=== PATIENT | female | born 1945 | race Caucasian/White ===

== ENCOUNTER 2019-03-13 21:00 | Inpatient (IN) | payer MEDICARE, OTHER ==
[~2019-03-13] VITALS: Ht 160 cm; Wt 109.0 kg
[2019-03-13] MEDS ORDERED: CLON0.25 PO (21:41)
[2019-03-13] MEDS ORDERED: DULO60CA6 PO (21:41)
[2019-03-13] MEDS ORDERED: EZET10TA18 PO (21:41)
[2019-03-13] MEDS ORDERED: ISOS30TA4 PO (21:41)
[2019-03-13] MEDS ORDERED: GLIP2.5T4 PO (21:41)
[2019-03-13] MEDS ORDERED: MIRT45TA58 PO (21:41)
[2019-03-13] MEDS ORDERED: LOSA50TA86 PO (21:41)
[2019-03-13] MEDS ORDERED: GABA-587 PO (21:41)
[2019-03-13] MEDS ORDERED: CLOP75TA57 PO (21:41)
[2019-03-13] MEDS ORDERED: DOCU-109 PO (21:41)
[2019-03-13] MEDS ORDERED: ATORVASTATIN CA80 MG PO (21:41)
[2019-03-13] MEDS ORDERED: FENO48TA2 PO (21:41)
[2019-03-13] MEDS ORDERED: FURO20TA3 PO (21:41)
[2019-03-13] MEDS ORDERED: BUSP10TA PO (21:41)
[2019-03-13] MEDS ORDERED: CARV6.25 PO (21:41)
[2019-03-13] MEDS ORDERED: LEVO112T4 PO (21:41)
[2019-03-13] MEDS ORDERED: ASPI-612 PO (21:41)
[2019-03-13] MEDS ORDERED: TRAZ-120 PO (22:02)
[2019-03-13] MEDS ORDERED: PANT40TA3 PO (22:02)
[2019-03-13] MEDS ORDERED: ONDA4TAB7 PO (22:02)
[2019-03-13 22:15] VITALS: BP 162/74
--- NOTE | 2019-03-13 22:15 | PDOC ---
Exam Note: Roni Note: Please also refer to the separate dictated note~for this date of service dictated separately. Discussed the patient with Nursing staff reviewed the chart.~Reviewed interim history and current functioning. Reviewed vital signs,~Labs/ Radiology~and current medications noted below. Continue current treatment with the changes noted in the dictated addendum note Current Medications: I have reviewed the current psychotropics carefully including drug interactions. Risk benefit ratio favors no change other than as noted in my dictated progress note. ADRIANA BENSON MD Mar 13, 2019 22:15
[2019-03-13] MEDS: clonazePAM 0.5 MG TABLET PO SCH (23:07)
[2019-03-13] MEDS: MIRTAZAPINE 15 MG TABLET PO SCH (23:08)
[2019-03-13] MEDS: ONDANSETRON ODT 4 MG TAB.RAPDIS PO PRN (23:08)
[2019-03-13] MEDS: traZODone 50 MG TABLET. PO SCH (23:08)
[2019-03-13] MEDS ORDERED: MAG HYDROX/AL HYDROX/SIMETH 30 ML ORAL.SUSP PO PRN (23:45)
[2019-03-13] MEDS ORDERED: METHYL SALICYLATE/MENTHOL TOPICAL OINTMENT 29GM TUBE. TP PRN (23:45)
[2019-03-13] MEDS ORDERED: ACETAMINOPHEN 325 MG TABLET PO PRN (23:45)
[2019-03-13] MEDS ORDERED: MAGNESIUM HYDROXIDE 2,400 MG/30 ML ORAL.SUSP. PO PRN (23:45)
[2019-03-14 06:08] VITALS: BP 146/77
[2019-03-14 06:44] LABS: BASO % 1 % (0-3); EOS # 0.2 x10^3/uL (0.0-0.7); EOS % 4 % (0-3); HEMATOCRIT 40.6 % (36.0-47.0); HEMOGLOBIN 13.4 g/dL (12.0-15.5); LYMPH # 0.6 x10^3/uL (1.0-4.8); LYMPH % 14 % (24-48); MEAN CORPUSCULAR HEMOGLOBIN 29 pg (25-35); MEAN CORPUSCULAR HGB CONC 33 g/dL (31-37); MEAN CORPUSCULAR VOLUME 89 fL (79-100); MONO # 0.4 x10^3/uL (0.0-1.1); MONO % 9 % (0-9); NEUT % 72 % (31-73); PLATELET COUNT 176 x10^3/uL (140-400); RED BLOOD COUNT 4.57 x10^6/uL (3.50-5.40); WHITE BLOOD COUNT 4.2 x10^3/uL (4.0-11.0)
[2019-03-14 06:53] LABS: ALBUMIN 3.1 g/dL (3.4-5.0); CREATININE 1.2 mg/dL (0.6-1.0); GFR 43.8; MAGNESIUM 1.8 mg/dL (1.8-2.4); POTASSIUM 3.4 mmol/L (3.5-5.1); TOTAL BILIRUBIN 0.4 mg/dL (0.2-1.0); TOTAL PROTEIN 6.2 g/dL (6.4-8.2)
[2019-03-14] MEDS: ONDANSETRON ODT 4 MG TAB.RAPDIS PO PRN (08:04)
[2019-03-14] MEDS: LEVOTHYROXINE 112 MCG TABLET PO SCH (08:12)
[2019-03-14] MEDS: busPIRone 10 MG TABLET. PO SCH ×3 (08:12→19:51)
[2019-03-14] MEDS: CLOPIDOGREL BISULFATE 75 MG TABLET PO SCH (08:12)
[2019-03-14] MEDS: ISOSORBIDE MONONITRATE ER 30 MG TAB.ER.24H PO SCH (08:13)
[2019-03-14] MEDS: clonazePAM 0.5 MG TABLET PO SCH ×3 (08:13→19:51)
[2019-03-14] MEDS: FENOFIBRATE NANOCRYSTALLIZED 48 MG TABLET PO SCH (08:14)
[2019-03-14] MEDS: LOSARTAN 50 MG TABLET. PO SCH (08:14)
[2019-03-14] MEDS: DOCUSATE SODIUM 100 MG CAPSULE PO SCH (08:15)
[2019-03-14] MEDS: PANTOPRAZOLE 40 MG TABLET. PO SCH (08:15)
[2019-03-14] MEDS: CARVEDILOL 6.25 MG TABLET PO SCH ×2 (08:16→17:43)
[2019-03-14] MEDS: DULoxetine HCL 60 MG CAPSULE.DR PO SCH (08:16)
[2019-03-14] MEDS: GABAPENTIN 400 MG CAPSULE. PO SCH ×2 (08:16→20:20)
[2019-03-14] MEDS: FUROSEMIDE 20 MG TABLET PO SCH (08:16)
[2019-03-14] MEDS: glipiZIDE ER 2.5 MG TAB.ER.24 PO SCH (08:16)
[2019-03-14 13:30] LABS: THYROID STIM HORMONE (TSH) 1.497 uIU/mL (0.358-3.740)
[2019-03-14 16:36] VITALS: BP 127/74
[2019-03-14 19:06] LABS: THYROXINE 7.6 ug/dL (4.5-12.0)
[2019-03-14] MEDS: traZODone 50 MG TABLET. PO SCH (19:47)
[2019-03-14] MEDS: MIRTAZAPINE 15 MG TABLET PO SCH (19:47)
[2019-03-14] MEDS: ASPIRIN ENTERIC COATED 81 MG TABLET.DR. PO SCH (19:51)
[2019-03-14] MEDS: EZETIMIBE 10 MG TABLET PO SCH (19:51)
[2019-03-14] MEDS: ATORVASTATIN CALCIUM 20 MG TABLET PO SCH (19:51)
--- NOTE | 2019-03-14 22:41 | PDOC ---
Exam Note: Roni Note: Please also refer to the separate dictated note~for this date of service dictated separately.~Patient seen individually. Discussed the patient with Nursing staff reviewed the chart.~Reviewed interim history and current functioning. Reviewed vital signs,~Labs/ Radiology~and current medications noted below. Continue current treatment with the changes noted in the dictated addendum note Assessment: Vital Signs/I&O: Vital Signs Date Time Temp Pulse Resp B/P (MAP) Pulse Ox O2 Delivery O2 Flow Rate FiO2 03/14/19 17:43 58 127/74 03/14/19 16:36 97.3 18 93 I & O 03/13/19 03/13/19 03/14/19 14:59 22:59 06:59 Intake Total 240 ml Balance 240 ml Labs: Laboratory Tests Test 03/14/19 06:05 03/14/19 11:44 03/14/19 17:08 03/14/19 19:31 White Blood Count 4.2 x10^3/uL (4.0-11.0) Red Blood Count 4.57 x10^6/uL (3.50-5.40) Hemoglobin 13.4 g/dL (12.0-15.5) Hematocrit 40.6 % (36.0-47.0) Mean Corpuscular Volume 89 fL (79-100) Mean Corpuscular Hemoglobin 29 pg (25-35) Mean Corpuscular Hemoglobin Concent 33 g/dL (31-37) Red Cell Distribution Width 14.0 % (11.5-14.5) Platelet Count 176 x10^3/uL (140-400) Neutrophils (%) (Auto) 72 % (31-73) Lymphocytes (%) (Auto) 14 % (24-48) L Monocytes (%) (Auto) 9 % (0-9) Eosinophils (%) (Auto) 4 % (0-3) H Basophils (%) (Auto) 1 % (0-3) Neutrophils # (Auto) 3.0 x10^3uL (1.8-7.7) Lymphocytes # (Auto) 0.6 x10^3/uL (1.0-4.8) L Monocytes # (Auto) 0.4 x10^3/uL (0.0-1.1) Eosinophils # (Auto) 0.2 x10^3/uL (0.0-0.7) Basophils # (Auto) 0.0 x10^3/uL (0.0-0.2) Sodium Level 146 mmol/L (136-145) H Potassium Level 3.4 mmol/L (3.5-5.1) L Chloride Level 109 mmol/L (98-107) H Carbon Dioxide Level 34 mmol/L (21-32) H Anion Gap 3 (6-14) L Blood Urea Nitrogen 26 mg/dL (7-20) H Creatinine 1.2 mg/dL (0.6-1.0) H Estimated GFR (Cockcroft-Gault) 43.8 BUN/Creatinine Ratio 22 (6-20) H Glucose Level 92 mg/dL (70-99) Calcium Level 10.0 mg/dL (8.5-10.1) Magnesium Level 1.8 mg/dL (1.8-2.4) Total Bilirubin 0.4 mg/dL (0.2-1.0) Aspartate Amino Transferase (AST) 16 U/L (15-37) Alanine Aminotransferase (ALT) 22 U/L (14-59) Alkaline Phosphatase 78 U/L (46-116) Total Protein 6.2 g/dL (6.4-8.2) L Albumin 3.1 g/dL (3.4-5.0) L Albumin/Globulin Ratio 1.0 (1.0-1.7) Triglycerides Level 151 mg/dL (0-150) H Cholesterol Level 137 mg/dL (0-200) LDL Cholesterol, Calculated 67 mg/dL (0-100) VLDL Cholesterol, Calculated 30 mg/dL (0-40) Non-HDL Cholesterol Calculated 97 mg/dL (0-129) HDL Cholesterol 40 mg/dL (40-60) Cholesterol/HDL Ratio 3.0 Thyroid Stimulating Hormone (TSH) 1.497 uIU/mL (0.358-3.740) Thyroxine (T4) 7.6 ug/dL (4.5-12.0) Total Triiodothyronine (TT3) 78 ng/dL (71-180) Treponema pallidum Antibody Nonreactive (Nonreactive) Glucose (Fingerstick) 156 mg/dL (70-99) H 151 mg/dL (70-99) H 105 mg/dL (70-99) H Current Medications: Meds: Current Medications Medications (Trade) Dose Ordered Sig/Bob Route PRN Reason Start Time Stop Time Status Last Admin Dose Admin Clopidogrel Bisulfate (Plavix) 75 mg DAILY PO 03/14/19 09:00 03/14/19 08:12 Furosemide (Lasix) 20 mg DAILY PO 03/14/19 09:00 03/14/19 08:16 Gabapentin (Neurontin) 400 mg BID PO 03/14/19 09:00 03/14/19 20:20 Isosorbide Mononitrate (Imdur) 30 mg DAILY PO 03/14/19 09:00 03/14/19 08:13 Levothyroxine Sodium (Synthroid) 112 mcg DAILY06 PO 03/14/19 07:30 03/14/19 08:12 Losartan Potassium (Cozaar) 50 mg DAILY PO 03/14/19 09:00 03/14/19 08:14 Aspirin (Aspirin Enteric Coated) 81 mg QHS PO 03/14/19 21:00 03/14/19 19:51 Atorvastatin Calcium (Lipitor) 80 mg QHS PO 03/14/19 21:00 03/14/19 19:51 Buspirone HCl (Buspar) 20 mg TID PO 03/14/19 09:00 03/14/19 19:51 Carvedilol (Coreg) 6.25 mg BIDWMEALS PO 03/14/19 08:00 03/14/19 17:43 Clonazepam (KlonoPIN) 0.25 mg TID PO 03/13/19 23:00 03/14/19 19:51 Docusate Sodium (Colace) 100 mg DAILY PO 03/14/19 09:00 03/14/19 08:15 Duloxetine HCl (Cymbalta) 60 mg DAILY PO 03/14/19 09:00 03/14/19 08:16 EZETIMIBE (Zetia) 10 mg QHS PO 03/14/19 21:00 03/14/19 19:51 Fenofibrate (Tricor) 48 mg DAILY PO 03/14/19 09:00 03/14/19 08:14 Glipizide (Glucotrol Er) 2.5 mg DAILY08 PO 03/14/19 08:00 03/14/19 08:16 Mirtazapine (Remeron) 45 mg QHS PO 03/13/19 23:00 03/14/19 19:47 Pantoprazole Sodium (Protonix) 40 mg DAILYAC PO 03/14/19 07:30 03/14/19 08:15 Trazodone HCl (Desyrel) 50 mg QHS PO 03/13/19 23:00 03/14/19 19:47 I have reviewed the current psychotropics carefully including drug interactions. Risk benefit ratio favors no change other than as noted in my dictated progress note. Diagnosis: Problems: (1) Panic disorder with agoraphobia and severe panic attacks (2) Anxiety disorder (3) Impulse control disorder (4) Major depressive disorder, recurrent episode ADRIANA BENSON MD Mar 14, 2019 22:41
--- NOTE | 2019-03-15 04:02 | CONS ---
DATE OF CONSULTATION: 03/14/2019 HISTORY OF PRESENT ILLNESS: The patient a 73-year-old female patient who was seen at the Emergency Room of [facility] with depression with passive suicidal thoughts, severe nausea and anxiety. She presented with blunted affect and tearful. The patient said that she has had constant feelings of anxiety. She ruminates that she would be better as she is a burden to everyone, though her family, all assure her that and she is not. She said that she has hardly been able to eat much in the past week due to feeling nauseated. The patient stated she is taking her medications, but feels that nothing is helping her. She went to see Dr. Dominic Birmingham on 03/11/2019, for medical evaluation and he continued her medications, but the patient feels hopeless that anyone can help her. The patient said that she sleeps at least 7-8 hours per night, but awakens in the morning with anxiety that worsens throughout the day. She has not been bathing or doing ADLs due to her anxiety and depression. She is on oxygen 2 liters by nasal cannula and sleeps with a CPAP at nighttime. She is requesting transfer to [facility]. She feels her admit here in [facility] did not help her, and apparently, the patient was admitted to this facility for inpatient psychiatric stabilization. PAST MEDICAL HISTORY: Hyperlipidemia and generalized osteoarthritis. She has chronic back pain, degenerative joint disease, gastroesophageal reflux disease. She is also known to have type 2 diabetes, hypothyroidism and carpal tunnel. PAST SURGICAL HISTORY: Significant for repair of incarcerated umbilical hernia, laminectomy, bilateral cataract extraction, carpal tunnel release, left knee arthroscopy twice. She apparently has right finger trigger finger, appendectomy, rotator cuff repair. She has bilateral laser photocoagulation for macular disease. She has also undergone colonoscopy, tonsillectomy, dilatation and curettage and conization of uterine cervix. She has bilateral cataract extraction. ALLERGIES: She has no known drug allergies. MEDICATIONS: She is currently on following medications: She is on Plavix 75 mg once a day, Zetia 10 mg at bedtime, fenofibrate 48 mg daily, atorvastatin calcium 80 mg once a day, isosorbide mononitrate 30 mg daily, carvedilol 6.25 mg twice a day, losartan potassium 50 mg daily, aspirin 81 mg once a day, clonazepam 0.25 mg 3 times a day, gabapentin 400 mg twice a day, duloxetine 60 mg daily, mirtazapine 45 mg daily, trazodone 50 mg daily, buspirone 20 mg 3 times a day, furosemide 20 mg daily, ondansetron 4 mg daily as needed, Protonix 40 mg daily, glipizide 2.5 mg once a day and levothyroxine sodium 112 mcg once a day. REVIEW OF SYSTEMS: The patient has bilateral cataract extraction and apparently has macular degeneration, but denied any glaucoma. Denied any earache, tinnitus or sensorineural deafness. Denied any nosebleeds, stuffy nose or postnasal drip. Denied any sore throat, sore tongue, toothache, hoarseness of voice or difficulty swallowing. Denied any nausea, vomiting, diarrhea or constipation. Denied any hematemesis, melena or hematochezia. Denied any dysuria, frequency or hematuria. Denied any chest pain, shortness of breath, orthopnea or paroxysmal nocturnal dyspnea. The patient stated that she sleeps very well at night; however, the moment she wakes up, her anxiety starts and progresses throughout the day. She has also severe nausea. IMAGING STUDIES AND LABORATORY DATA: While at [facility], she has had a CT scan of the abdomen and pelvis and this showed that the lung bases are clear. There is a large paraesophageal and sliding hiatal hernia. Greater than half of the stomach is intrathoracic. There is no gastric distention or wall thickening. The liver is normal in size without focal lesion. The gallbladder is surgically absent. There is mild ectasia of the bile ducts similar to prior study. The spleen is unremarkable. There are 2 areas of low density in the pancreas. In the tail of the pancreas, there is a low density area measuring about 18 mm. In the anterior proximal body of the pancreas, there is a second area of low density measuring 17 mm in size. Both areas are incompletely characterized, but likely reflect cyst, correlate for remote manifestation of pancreatitis. There is no acute peripancreatic fat stranding. No enhancing masses are seen. The adrenal glands are unremarkable. The kidneys are normal in size without focal lesion. The aorta is normal in caliber. There is no central retroperitoneal adenopathy. The pelvic structures including the bladder are unremarkable. No free fluid are identified. No free air or abscess. The small bowel is unremarkable. There is no mucosal thickening or mechanical bowel obstruction. There is sigmoid diverticulosis without evidence of diverticulitis. There are surgical changes of previous ventral hernia repair. No recurrent hernia is identified. There is no CT evidence of appendicitis. There is advanced multilevel lumbar spondylosis and grade 1 spondylolisthesis of L4 on L5 with severe central canal and bilateral neural foraminal stenosis. The patient has moderate to large hiatal hernia, essentially unchanged from 2013. She has development of 2 areas of low density in the pancreas, likely reflecting pseudocyst sigmoid diverticulosis without diverticulitis, severe lower lumbar spondylosis with severe spinal stenosis. Her chest x-ray showed that the patient has moderate cardiomegaly and mild pulmonary venous congestion is present. There is no pleural effusion, no pneumothorax. There is no consolidating infiltrate. Stable moderate hiatal hernia is present. There is no acute osseous abnormality. CT scan of the head showed no intracranial hemorrhage, intraparenchymal or subarachnoid hemorrhage. No significant mass effect or suspicious masses are seen. Normal appearance of the white matter. The brain stem is unremarkable. There are post-procedural changes of cataract surgery. The orbits are otherwise unremarkable. The vasculature is unremarkable. The visualized paranasal sinuses and mastoid air cells are normal. Skull base and calvarium is unremarkable. Her lab work showed her serum sodium was 146, potassium 3.4, chloride 109, bicarbonate 34, anion gap of 3, BUN 26, creatinine 1.2, estimated GFR was 44 mL per minute. Her glucose was 92, calcium was 10, magnesium was 1.8. Total bilirubin, AST, ALT, alkaline phosphatase were normal. Total protein was 6.2, albumin 3.1. Serum triglycerides 151, total cholesterol 137, LDL was 67, VLDL was 30, HDL cholesterol was 40, and the ratio was 3. TSH was normal at 1.497. Her white cell count was 4200, hemoglobin 13, hematocrit 40, MCV 89 and platelet count of 176,000. Her treponema pallidum antibodies were nonreactive. ASSESSMENT AND PLAN: So, in summary, this is a 73-year-old female patient who was basically seen at the Emergency Room of [facility] with passive depression and passive suicidal thoughts, severe nausea and anxiety. The patient presents with blunted affect and tearful. She said that she has had constant feelings of anxiety. She ruminates that she would be better as she is a burden to her family, although her family are all assuring her that she is not a burden. The patient said that she has hardly been able to eat much in the past week due to feeling nauseated. She said that she is taking her meds, but feels that nothing is helping her. She normally sleeps about 7-8 hours at nighttime and when awakes she starts anxiety that worsens throughout the day. She has not been bathing or doing ADLs due to her anxiety and depression. She is on oxygen 2 liters by nasal cannula and sleeps with a CPAP machine at nighttime. She is here for inpatient psychiatric stabilization medically. She obviously had this severe nausea that I really cannot explain why. She has this large paraesophageal hernia that apparently has been stable since 2012. There was no evidence of any obstruction or incarceration. All her lab work seems to be within normal range. Her sodium and potassium are slightly low. Clinically, she does not seem to be in any congestive heart failure. If anything, seems to be on the dry side. I would probably continue with all her current medication as they are and observe her for a few days, and we might have to obviously consider doing some other antiemetics if deemed necessary. Thank you, Dr. Dumont for allowing me to participate in the care of this. DICTATION ENDS HERE SARAI KENNEY MD DR: BETZY/sadaf JOB#: [id number] / [id number]
[2019-03-15] MEDS: LEVOTHYROXINE 112 MCG TABLET PO SCH (06:04)
[2019-03-15 06:08] VITALS: BP 138/86
[2019-03-15] MEDS: DULoxetine HCL 60 MG CAPSULE.DR PO SCH (08:03)
[2019-03-15] MEDS: DOCUSATE SODIUM 100 MG CAPSULE PO SCH (08:03)
[2019-03-15] MEDS: glipiZIDE ER 2.5 MG TAB.ER.24 PO SCH (08:03)
[2019-03-15] MEDS: FENOFIBRATE NANOCRYSTALLIZED 48 MG TABLET PO SCH (08:03)
[2019-03-15] MEDS: CLOPIDOGREL BISULFATE 75 MG TABLET PO SCH (08:03)
[2019-03-15] MEDS: ISOSORBIDE MONONITRATE ER 30 MG TAB.ER.24H PO SCH (08:04)
[2019-03-15] MEDS: PANTOPRAZOLE 40 MG TABLET. PO SCH (08:04)
[2019-03-15] MEDS: busPIRone 10 MG TABLET. PO SCH ×3 (08:04→20:05)
[2019-03-15] MEDS: FUROSEMIDE 20 MG TABLET PO SCH (08:04)
[2019-03-15] MEDS: CARVEDILOL 6.25 MG TABLET PO SCH ×2 (08:05→17:00)
[2019-03-15] MEDS: LOSARTAN 50 MG TABLET. PO SCH (08:05)
[2019-03-15 08:07] LABS: HEMOGLOBIN A1C 6.3 % (4.8-5.6)
[2019-03-15] MEDS: GABAPENTIN 400 MG CAPSULE. PO SCH ×2 (08:07→20:06)
[2019-03-15] MEDS: clonazePAM 0.5 MG TABLET PO SCH ×3 (08:07→20:07)
--- NOTE | 2019-03-15 13:19 | HP ---
ADMIT DATE: 03/14/2019 PSYCHIATRIC ADMISSION HISTORY AND EVALUATION This late entry, 03/14/2019, covers elements, not covered in my initial note. I met with the patient at some length the evening of 03/14/2019. Discussed with treatment team meeting with the entire team morning of 03/14/2019 and previously discussed with Kendal Jenkins, clerical coordinator on 03/13/2019 prior to the patient's admission and also with the nursing staff. IDENTIFYING DATA: The patient is a 73-year-old female referred to us from [facility] Emergency Room where she presented on account of worsening symptoms of depression, noted to be "very depressed, very anxious, can't function." Consequent to all of this and she has failed inpatient psychiatric hospitalization at [facility] in the past and refuses to go back there at this time. She feels overwhelmed, has had poor oral intake, reduced desire for self-care, passive thoughts of suicide by overdosing on her medications, unable to cope it all. She admits to feeling hopeless, helpless, worthless, like a burden to her family with whom she lives. CHIEF COMPLAINT: "I have been at [facility] more than once. Nothing helps. I have a lot of anxiety. I am depressed. I live with my family but I can't go on like this." HISTORY OF PRESENT ILLNESS: The patient has a history of significantly worsening symptoms of depression, feeling hopeless, helpless, worthless with sleep and appetite changes, marked anxiety, paranoia. No active homicidal ideation. No clear history of bipolar disorder. Cognitively, she has been reasonably intact other than some short-term memory deficits. PAST PSYCHIATRIC HISTORY: As above. PAST MEDICAL HISTORY: COPD, on 2 liters continuous oxygen; history of diabetes mellitus; recurrent UTIs; anxiety; possible CHF. PAST SURGICAL HISTORY: Appendectomy, cholecystectomy, bilateral knee surgery, right rotator cuff surgery, has a history of aphasia, back surgery. ALLERGIES: Negative. CODE STATUS: Full code. ACCU-CHEKS: Before meals and at bedtime, pending A1c results. Ambulates independently and with a walker. UA on 03/13/2019 was negative. CURRENT PSYCHOTROPICS: BuSpar 20 mg b.i.d., Klonopin 0.25 mg b.i.d., Cymbalta 60 mg a day, trazodone 50 mg at bedtime, Remeron 45 mg at bedtime. FAMILY HISTORY: Noncontributory. SOCIAL HISTORY: No history of alcohol, drug abuse, physical, sexual or elder abuse. She is not known to be a perpetrator. REACTION TO HOSPITALIZATION: The patient accepting of it. ASSETS: Supportive family. MENTAL STATUS EXAMINATION: The patient was seen individually evening of 03/14/2019. She is reasonably oriented to place, situation. Knew she was admitted the previous night from [facility]. Staff had called me late at night after the patient presented to the ER and we reviewed all the historical information and ER evaluation prior to this admission. Mood is depressed, hopeless, helpless, worthless. Affect is mood congruent. She denied active suicidal or homicidal ideation. Speech coherent, verbal, somewhat hyperverbal at times. Intellect average. Insight fair. Judgment intact to standard questioning. Attention span is short. LABORATORY DATA: Reviewed. IMPRESSION: Major depressive disorder, recurrent, rule out psychotic features; anxiety disorder, unspecified; mild cognitive impairment; rest as above. PLAN: Admit to geropsychiatry unit at [facility]. I will see the patient daily individually from a psychiatric standpoint. Medical followup with Dr. Jaime. Continue the patient on her current psychotropics. Observe baseline, get past psychiatric records from [facility] and then make adjustments as clinically indicated. Consider adding Abilify to augment the antidepressant as one option. ESTIMATED LENGTH OF STAY: 10-12 days. DISPOSITION PLANS: Back home with family to outpatient psychiatric followup with estimated length of stay 7-10 days. MAN Flavio BENSON MD DR: FILI/sadaf JOB#: [id number] / [id number]
[2019-03-15] MEDS: ARIPiprazole 5 MG TABLET PO SCH (13:30)
[2019-03-15 15:47] VITALS: BP 145/69
[2019-03-15] MEDS: EZETIMIBE 10 MG TABLET PO SCH (20:05)
[2019-03-15] MEDS: MIRTAZAPINE 15 MG TABLET PO SCH (20:05)
[2019-03-15] MEDS: ASPIRIN ENTERIC COATED 81 MG TABLET.DR. PO SCH (20:05)
[2019-03-15] MEDS: ATORVASTATIN CALCIUM 20 MG TABLET PO SCH (20:05)
[2019-03-15] MEDS: traZODone 50 MG TABLET. PO SCH (20:06)
--- NOTE | 2019-03-15 22:15 | PDOC ---
Exam Note: Roni Note: Please also refer to the separate dictated note~for this date of service dictated separately.~Patient seen individually. Discussed the patient with Nursing staff reviewed the chart.~Reviewed interim history and current functioning. Reviewed vital signs,~Labs/ Radiology~and current medications noted below. Continue current treatment with the changes noted in the dictated addendum note Assessment: Vital Signs/I&O: Vital Signs Date Time Temp Pulse Resp B/P (MAP) Pulse Ox O2 Delivery O2 Flow Rate FiO2 03/15/19 17:00 62 145/69 03/15/19 15:47 97.2 19 96 Room Air 03/15/19 06:08 2.0 I & O 03/14/19 03/14/19 03/15/19 15:00 23:00 07:00 Intake Total 200 ml 240 ml 420 ml Balance 200 ml 240 ml 420 ml Labs: Laboratory Tests Test 03/15/19 07:24 03/15/19 11:47 03/15/19 16:37 03/15/19 19:23 Glucose (Fingerstick) 110 mg/dL (70-99) H 146 mg/dL (70-99) H 138 mg/dL (70-99) H 156 mg/dL (70-99) H Current Medications: Meds: Current Medications Medications (Trade) Dose Ordered Sig/Bob Route PRN Reason Start Time Stop Time Status Last Admin Dose Admin Aripiprazole (Abilify) 5 mg DAILY PO 03/15/19 13:30 03/15/19 13:30 I have reviewed the current psychotropics carefully including drug interactions. Risk benefit ratio favors no change other than as noted in my dictated progress note. Diagnosis: Problems: (1) Panic disorder with agoraphobia and severe panic attacks (2) Anxiety disorder (3) Impulse control disorder (4) Major depressive disorder, recurrent episode ADRIANA BENSON MD Mar 15, 2019 22:15
--- NOTE | 2019-03-15 23:01 | PN ---
DATE: 03/14/2019 This is a late entry 03/14/2019 covers elements not covered in my initial note. In addition to what I had dictated in my initial evaluation, I further reassessed all her information. The patient has had 2-3 inpatient psychiatric hospitalizations at [facility] and has failed all of this. We will get those records and if she has not had a CT head recently, we will do one without contrast. She has failed treatment on antidepressants, Cymbalta along with BuSpar, Klonopin for anxiety, Remeron and trazodone for insomnia and we will go ahead and augment the Cymbalta 60 mg a day with Abilify 5 mg daily. Received informed consent. ADRIANA BENSON MD DR: FILI/sadaf JOB#: [id number] / [id number]
--- NOTE | 2019-03-16 01:05 | PN ---
DATE: 03/15/2019 PSYCHIATRIC PROGRESS NOTE This note covers elements not covered in my initial note 03/15/2019. SUBJECTIVE: I met with the patient in the evening. The patient slept 6 hours previous night. Reviewed her past history, had a CVA in 11/2018. I have reviewed extensive records from [facility], unable to find a CT head, though she had a neurological workup at the time of her MRI completed for her CVA in November. She was tearful in the morning, better later in the day. REVIEW OF SYSTEMS: Ambulation impaired, in wheelchair. No CV, , pulmonary, eye system symptoms on review. MENTAL STATUS EXAM: Oriented to herself and situation. Speech is coherent, abstraction fair, computation impaired, language function intact, attention span short. Mood and affect remains depressed, anxious, and labile. LABORATORY DATA: Reviewed. IMPRESSION: Major depressive disorder, severe, rule out psychotic features; anxiety disorder, unspecified; mild cognitive impairment. Rest unchanged from admission. PLAN: Continue current psychotropics. Abilify was added 5 mg a day to augment the Cymbalta 60 mg a day. Maintain Klonopin 0.25 b.i.d., BuSpar 20 mg b.i.d., trazodone 50 mg at bedtime, Remeron 45 mg at bedtime, and adjust as clinically indicated. MAN Flavio BENSON MD DR: FILI/sadaf JOB#: [id number] / [id number]
[2019-03-16] MEDS: LEVOTHYROXINE 112 MCG TABLET PO SCH (05:36)
[2019-03-16 06:06] VITALS: BP 126/80
[2019-03-16] MEDS: busPIRone 10 MG TABLET. PO SCH ×3 (07:57→19:42)
[2019-03-16] MEDS: ISOSORBIDE MONONITRATE ER 30 MG TAB.ER.24H PO SCH (07:58)
[2019-03-16] MEDS: DOCUSATE SODIUM 100 MG CAPSULE PO SCH (07:58)
[2019-03-16] MEDS: FUROSEMIDE 20 MG TABLET PO SCH (07:58)
[2019-03-16] MEDS: CLOPIDOGREL BISULFATE 75 MG TABLET PO SCH (07:59)
[2019-03-16] MEDS: ARIPiprazole 5 MG TABLET PO SCH (07:59)
[2019-03-16] MEDS: FENOFIBRATE NANOCRYSTALLIZED 48 MG TABLET PO SCH (07:59)
[2019-03-16] MEDS: DULoxetine HCL 60 MG CAPSULE.DR PO SCH (07:59)
[2019-03-16] MEDS: PANTOPRAZOLE 40 MG TABLET. PO SCH (07:59)
[2019-03-16] MEDS: glipiZIDE ER 2.5 MG TAB.ER.24 PO SCH (08:00)
[2019-03-16] MEDS: LOSARTAN 50 MG TABLET. PO SCH (08:00)
[2019-03-16] MEDS: CARVEDILOL 6.25 MG TABLET PO SCH ×2 (08:01→17:20)
[2019-03-16] MEDS: GABAPENTIN 400 MG CAPSULE. PO SCH ×2 (09:46→19:42)
[2019-03-16] MEDS: clonazePAM 0.5 MG TABLET PO SCH ×3 (09:46→19:44)
--- NOTE | 2019-03-16 10:52 | RAD ---
PQRS Compliance statement: One or more of the following individualized dose reduction techniques were utilized for this examination: 1. Automated exposure control. 2. Adjustment of the mA and/or kV according to patient size. 3. Use of iterative reconstruction technique. Indication:Mental status change TECHNIQUE: CT head without IV contrast COMPARISON: None FINDINGS: No pathologic extra-axial or intra-axial fluid collection. The ventricles and basal cisterns are within normal limits. No acute intracranial bleed. No focal loss of whitten-white differentiation. Orbits are within normal limits. No suspicious calvarial lesion. Visualized paranasal sinuses and mastoid air cells are clear. IMPRESSION: 1. No acute intracranial process on this noncontrast CT. If concern for acute ischemic stroke is high, please consider MRI brain. Electronically signed by: Nikita Bond DO (03/16/2019 10:49 AM) [facility]
[2019-03-16 15:35] VITALS: BP 102/63
[2019-03-16] MEDS: EZETIMIBE 10 MG TABLET PO SCH (19:42)
[2019-03-16] MEDS: ASPIRIN ENTERIC COATED 81 MG TABLET.DR. PO SCH (19:42)
[2019-03-16] MEDS: MIRTAZAPINE 15 MG TABLET PO SCH (19:42)
[2019-03-16] MEDS: traZODone 50 MG TABLET. PO SCH (19:42)
[2019-03-16] MEDS: ATORVASTATIN CALCIUM 20 MG TABLET PO SCH (19:43)
[2019-03-17] MEDS: LEVOTHYROXINE 112 MCG TABLET PO SCH (06:14)
[2019-03-17 06:24] VITALS: BP 102/66
[2019-03-17] MEDS: glipiZIDE ER 2.5 MG TAB.ER.24 PO SCH (07:28)
[2019-03-17] MEDS: FENOFIBRATE NANOCRYSTALLIZED 48 MG TABLET PO SCH (07:28)
[2019-03-17] MEDS: ISOSORBIDE MONONITRATE ER 30 MG TAB.ER.24H PO SCH (07:29)
[2019-03-17] MEDS: PANTOPRAZOLE 40 MG TABLET. PO SCH (07:30)
[2019-03-17] MEDS: ARIPiprazole 5 MG TABLET PO SCH (07:30)
[2019-03-17] MEDS: CARVEDILOL 6.25 MG TABLET PO SCH ×2 (07:30→17:22)
[2019-03-17] MEDS: DOCUSATE SODIUM 100 MG CAPSULE PO SCH (07:30)
[2019-03-17] MEDS: LOSARTAN 50 MG TABLET. PO SCH (07:30)
[2019-03-17] MEDS: DULoxetine HCL 60 MG CAPSULE.DR PO SCH (07:31)
[2019-03-17] MEDS: busPIRone 10 MG TABLET. PO SCH ×3 (07:31→19:31)
[2019-03-17] MEDS: CLOPIDOGREL BISULFATE 75 MG TABLET PO SCH (07:31)
[2019-03-17] MEDS: clonazePAM 0.5 MG TABLET PO SCH ×3 (09:19→19:34)
[2019-03-17] MEDS: FUROSEMIDE 20 MG TABLET PO SCH (09:19)
[2019-03-17] MEDS: GABAPENTIN 400 MG CAPSULE. PO SCH ×2 (09:22→19:31)
[2019-03-17 17:07] VITALS: BP 99/66
--- NOTE | 2019-03-17 17:16 | PN ---
DATE: 03/16/2019 SUBJECTIVE: The patient was seen today, met with the staff, chart reviewed. Staff reports the patient has cognitive problems. The patient apparently has questionable CVA. The patient wants to isolate herself. The patient's daughter is the caregiver. The patient also has some problems with dysphagia, multiple physical complaints. Apparently, the patient has been to [facility] at least twice mostly for medical issues. The patient also on the Psych Unit recently in early 02/2019 and she was admitted because of depression with suicidal thoughts and plans. The patient was brought to the Emergency Room from [facility] after she called them for help having suicidal thoughts with plan to overdose on her medications. The patient states she is dependent, scared, afraid to be by herself. The patient apparently was hospitalized on 01/[address] Dominic Birmingham as an outpatient. The patient had been tried on several medications in the past. The patient's depression started since her got sick in 2003 and the in 2007 at the age of 62. The patient is still dealing with the loss. The patient is also having lot of physical complaints, currently on wheelchair and oxygen. The patient was given a diagnosis of major depressive disorder, recurrent, without psychosis with generalized anxiety disorder. OBSERVATION: VITAL SIGNS: Temperature 97.9, blood pressure 126/80, pulse 75, respirations 20, O2 sat 94%. Slept about 6 hours last night. Appetite fair. MEDICATIONS: The patient's current medications include Abilify 5 mg daily, Cymbalta 60 mg daily, BuSpar 20 mg t.i.d., gabapentin 400 mg b.i.d., trazodone 50 mg at night, mirtazapine 45 mg at night, clonazepam 0.25 mg t.i.d. LABORATORY DATA: The patient's labs reviewed, which are all within normal range except for elevated blood sugar. Hemoglobin A1c was 6.3. Sodium was slightly elevated at 146, potassium 3.4, BUN 26, creatinine 1.2. ASSESSMENT: 1. Major depressive disorder, recurrent, without psychotic features. 2. Anxiety disorder. 3. Mild cognitive impairment. PLAN: To continue with the current treatment plan. ANTONIO LEIJA MD DR: CRISTINA/sadaf JOB#: [id number] / [id number] YULIYA
[2019-03-17] MEDS: traZODone 50 MG TABLET. PO SCH (19:31)
[2019-03-17] MEDS: ASPIRIN ENTERIC COATED 81 MG TABLET.DR. PO SCH (19:31)
[2019-03-17] MEDS: EZETIMIBE 10 MG TABLET PO SCH (19:31)
[2019-03-17] MEDS: MIRTAZAPINE 15 MG TABLET PO SCH (19:31)
[2019-03-17] MEDS: ATORVASTATIN CALCIUM 20 MG TABLET PO SCH (19:32)
--- NOTE | 2019-03-18 01:54 | PN ---
DATE: 03/17/2019 SUBJECTIVE: The patient was seen today, met with the staff, chart reviewed. The patient states she is feeling a little better, still having high level of anxiety. The patient also states she is afraid of being here. The patient also having problems with impulse control, low frustration tolerance. The patient also admits to feeling depressed. The patient also talked about her 2 prior hospitalizations at [facility] and also she has been seeing her psychiatrist for several years and she has been on medications mostly for depression. The patient continues to have problems with memory. She is oriented to self and situation: LABORATORY DATA: The patient's lab reviewed. CURRENT MEDICATIONS: Include Abilify 5 mg daily, Cymbalta 60 mg daily, BuSpar 20 mg t.i.d., gabapentin 400 mg b.i.d., mirtazapine 45 mg at night and also trazodone 50 mg at night and clonazepam 0.25 mg t.i.d. p.o. IMPRESSION: 1. Major depressive disorder, severe with psychotic features. 2. Anxiety disorder, unspecified; mild cognitive impairment. PLAN: To continue with the current treatment plan. LENGTH OF STAY: 5-7 days. ANTONIO LEIJA MD DR: CRISTINA/sadaf JOB#: [id number] / [id number]
[2019-03-18] MEDS: LEVOTHYROXINE 112 MCG TABLET PO SCH (05:19)
[2019-03-18 06:21] VITALS: BP 105/61
[2019-03-18] MEDS: ARIPiprazole 5 MG TABLET PO SCH (08:18)
[2019-03-18] MEDS: busPIRone 10 MG TABLET. PO SCH ×3 (08:19→21:14)
[2019-03-18] MEDS: GABAPENTIN 400 MG CAPSULE. PO SCH ×2 (08:19→21:14)
[2019-03-18] MEDS: CARVEDILOL 6.25 MG TABLET PO SCH ×2 (08:19→16:42)
[2019-03-18] MEDS: DOCUSATE SODIUM 100 MG CAPSULE PO SCH (08:20)
[2019-03-18] MEDS: CLOPIDOGREL BISULFATE 75 MG TABLET PO SCH (08:20)
[2019-03-18] MEDS: clonazePAM 0.5 MG TABLET PO SCH ×3 (08:20→21:15)
[2019-03-18] MEDS: PANTOPRAZOLE 40 MG TABLET. PO SCH (08:20)
[2019-03-18] MEDS: DULoxetine HCL 60 MG CAPSULE.DR PO SCH (08:20)
[2019-03-18] MEDS: glipiZIDE ER 2.5 MG TAB.ER.24 PO SCH (08:23)
[2019-03-18] MEDS: FENOFIBRATE NANOCRYSTALLIZED 48 MG TABLET PO SCH (08:23)
[2019-03-18] MEDS: ISOSORBIDE MONONITRATE ER 30 MG TAB.ER.24H PO SCH (10:12)
[2019-03-18] MEDS: FUROSEMIDE 20 MG TABLET PO SCH (10:13)
[2019-03-18] MEDS: LOSARTAN 50 MG TABLET. PO SCH (10:13)
[2019-03-18 16:33] VITALS: BP 128/64
[2019-03-18 17:11] LABS: CALCIUM 10.1 mg/dL (8.5-10.1); CREATININE 1.6 mg/dL (0.6-1.0); GFR 31.4; POTASSIUM 3.6 mmol/L (3.5-5.1)
[2019-03-18] MEDS: ASPIRIN ENTERIC COATED 81 MG TABLET.DR. PO SCH (21:14)
[2019-03-18] MEDS: traZODone 50 MG TABLET. PO SCH (21:14)
[2019-03-18] MEDS: ATORVASTATIN CALCIUM 20 MG TABLET PO SCH (21:14)
[2019-03-18] MEDS: EZETIMIBE 10 MG TABLET PO SCH (21:14)
[2019-03-18] MEDS: MIRTAZAPINE 15 MG TABLET PO SCH (21:14)
--- NOTE | 2019-03-18 23:56 | PN ---
DATE: 03/18/2019 SUBJECTIVE: The patient was seen today, met with the staff, and chart reviewed. The patient states she is feeling better. Continues to have high level of anxiety, continues to have problems with impulse control and low frustration tolerance. The patient continues to have problems with anxiety in spite of taking her medications. The patient denies having any side effects. OBSERVATION: VITAL SIGNS: Temperature 97.8., blood pressure 105/61, pulse 72, respirations 20, O2 sat 96%. Slept about 6 hours last night. CURRENT MEDICATIONS: Abilify 5 mg daily, Cymbalta 60 mg daily, BuSpar 20 mg t.i.d., gabapentin 400 mg b.i.d., mirtazapine 45 mg at night and also trazodone 50 mg at night. She is also on Klonopin 0.25 mg t.i.d. The patient denies of any side effects to the medications. The patient admits to having "dependence" issues and is dependent on the family members. The patient also feeling insecure. IMPRESSION: 1. Major depressive disorder, moderate, with psychotic features. 2. Anxiety disorder, unspecified. 3. Mild cognitive impairment. PLAN: Continue with the current treatment plan. LENGTH OF STAY: 5-7 days. ANTONIO LEIJA MD DR: CRISTINA/sadaf JOB#: [id number] / [id number]
[2019-03-19] MEDS: LEVOTHYROXINE 112 MCG TABLET PO SCH (06:07)
[2019-03-19 06:12] VITALS: BP 111/65
[2019-03-19] MEDS: LOSARTAN 50 MG TABLET. PO SCH (07:43)
[2019-03-19] MEDS: PANTOPRAZOLE 40 MG TABLET. PO SCH (07:43)
[2019-03-19] MEDS: DOCUSATE SODIUM 100 MG CAPSULE PO SCH (07:43)
[2019-03-19] MEDS: CLOPIDOGREL BISULFATE 75 MG TABLET PO SCH (07:44)
[2019-03-19] MEDS: clonazePAM 0.5 MG TABLET PO SCH ×3 (07:44→20:08)
[2019-03-19] MEDS: ARIPiprazole 5 MG TABLET PO SCH (07:44)
[2019-03-19] MEDS: DULoxetine HCL 60 MG CAPSULE.DR PO SCH (07:44)
[2019-03-19] MEDS: ISOSORBIDE MONONITRATE ER 30 MG TAB.ER.24H PO SCH (07:44)
[2019-03-19] MEDS: glipiZIDE ER 2.5 MG TAB.ER.24 PO SCH (07:45)
[2019-03-19] MEDS: busPIRone 10 MG TABLET. PO SCH ×3 (07:45→20:04)
[2019-03-19] MEDS: CARVEDILOL 6.25 MG TABLET PO SCH ×2 (07:45→16:57)
[2019-03-19] MEDS: FENOFIBRATE NANOCRYSTALLIZED 48 MG TABLET PO SCH (07:46)
[2019-03-19] MEDS: FUROSEMIDE 20 MG TABLET PO SCH (07:46)
[2019-03-19] MEDS: GABAPENTIN 400 MG CAPSULE. PO SCH ×2 (07:47→20:09)
[2019-03-19 16:18] VITALS: BP 133/79
[2019-03-19] MEDS: MIRTAZAPINE 15 MG TABLET PO SCH (20:04)
[2019-03-19] MEDS: EZETIMIBE 10 MG TABLET PO SCH (20:04)
[2019-03-19] MEDS: traZODone 50 MG TABLET. PO SCH (20:04)
[2019-03-19] MEDS: ASPIRIN ENTERIC COATED 81 MG TABLET.DR. PO SCH (20:04)
[2019-03-19] MEDS: ATORVASTATIN CALCIUM 20 MG TABLET PO SCH (20:05)
--- NOTE | 2019-03-19 23:11 | PN ---
DATE: 03/19/2019 SUBJECTIVE: The patient was seen today, met with the staff, chart reviewed. The patient continues to show high level of anxiety and angry outbursts, mood swings, exhibiting poor impulse control, low frustration tolerance. The patient denied of any side effects to the medications. OBSERVATION: VITAL SIGNS: Stable. Slept about 6 hours last night. The patient is not having any major medical issues at this time. Her lab reviewed. MEDICATIONS: The patient's current medications include Abilify 5 mg daily, Cymbalta 60 mg daily, BuSpar 20 mg t.i.d., gabapentin 450 mg b.i.d., mirtazapine 45 mg at night and also trazodone 50 mg at night. The patient is also on Klonopin 0.25 mg t.i.d. p.o. The patient had problems with anxiety, feeling insecure and had anticipatory anxiety. IMPRESSION: 1. Major depressive disorder, moderate, with psychotic features. 2. Anxiety disorder, unspecified. 3. Mild cognitive impairment. PLAN: To continue with the treatment. LENGTH OF STAY: 5 days. ANTONIO LEIJA MD DR: CRISTINA/sadaf JOB#: [id number] / [id number]
[2019-03-20] MEDS: LEVOTHYROXINE 112 MCG TABLET PO SCH (06:07)
[2019-03-20 06:20] VITALS: BP 101/60
[2019-03-20] MEDS: ARIPiprazole 5 MG TABLET PO SCH (08:04)
[2019-03-20] MEDS: FENOFIBRATE NANOCRYSTALLIZED 48 MG TABLET PO SCH (08:04)
[2019-03-20] MEDS: busPIRone 10 MG TABLET. PO SCH ×4 (08:05→19:38)
[2019-03-20] MEDS: GABAPENTIN 400 MG CAPSULE. PO SCH ×2 (08:05→19:37)
[2019-03-20] MEDS: CLOPIDOGREL BISULFATE 75 MG TABLET PO SCH (08:06)
[2019-03-20] MEDS: DULoxetine HCL 60 MG CAPSULE.DR PO SCH (08:06)
[2019-03-20] MEDS: PANTOPRAZOLE 40 MG TABLET. PO SCH (08:06)
[2019-03-20] MEDS: glipiZIDE ER 2.5 MG TAB.ER.24 PO SCH (08:06)
[2019-03-20] MEDS: FUROSEMIDE 20 MG TABLET PO SCH (08:06)
[2019-03-20] MEDS: DOCUSATE SODIUM 100 MG CAPSULE PO SCH (08:07)
[2019-03-20] MEDS: LOSARTAN 50 MG TABLET. PO SCH (08:07)
[2019-03-20] MEDS: CARVEDILOL 6.25 MG TABLET PO SCH ×2 (08:08→17:03)
[2019-03-20] MEDS: ISOSORBIDE MONONITRATE ER 30 MG TAB.ER.24H PO SCH (08:08)
[2019-03-20] MEDS: clonazePAM 0.5 MG TABLET PO SCH ×3 (08:10→19:37)
[2019-03-20 15:54] VITALS: BP 113/69
[2019-03-20] MEDS: EZETIMIBE 10 MG TABLET PO SCH (19:31)
[2019-03-20] MEDS: MIRTAZAPINE 15 MG TABLET PO SCH (19:31)
[2019-03-20] MEDS: ATORVASTATIN CALCIUM 20 MG TABLET PO SCH (19:32)
[2019-03-20] MEDS: ASPIRIN ENTERIC COATED 81 MG TABLET.DR. PO SCH (19:32)
[2019-03-20] MEDS: traZODone 50 MG TABLET. PO SCH (19:33)
--- NOTE | 2019-03-20 23:34 | PN ---
DATE: 03/20/2019 SUBJECTIVE: The patient was seen today, met with the staff, chart reviewed. The patient is having difficulty with concentration and thinking highly anxious and emotionally labile. The patient states she is having difficulty dealing with the stress hours. OBSERVATION: VITAL SIGNS: Temperature 97.5, blood pressure 101/60, pulse 64, respirations 16, O2 sat 97%. Slept about 7 hours last night. The patient is not having any negative thoughts including suicidal thoughts. MEDICATIONS: The patient's current medications include Abilify 5 mg daily, Cymbalta 60 mg daily, BuSpar 20 mg t.i.d., gabapentin 450 mg b.i.d., mirtazapine 45 mg at night, and trazodone 50 mg at night. The patient is also on Klonopin 0.25 mg t.i.d. p.o. The patient is still having problems with high level of anxiety, periods of depression, also emotional lability. ASSESSMENT: 1. Major depressive disorder, moderate, with psychotic features. 2. Anxiety disorder, unspecified. 3. Mild cognitive impairment. PLAN: To continue with the treatment. LENGTH OF STAY: 5 days. ANTONIO LEIJA MD DR: CRISTINA/sadaf JOB#: [id number] / [id number]
[2019-03-21] MEDS: LEVOTHYROXINE 112 MCG TABLET PO SCH (05:35)
[2019-03-21 06:15] VITALS: BP 131/72
[2019-03-21] MEDS: CLOPIDOGREL BISULFATE 75 MG TABLET PO SCH (08:09)
[2019-03-21] MEDS: ARIPiprazole 5 MG TABLET PO SCH (08:09)
[2019-03-21] MEDS: CARVEDILOL 6.25 MG TABLET PO SCH ×2 (08:10→17:15)
[2019-03-21] MEDS: busPIRone 10 MG TABLET. PO SCH ×2 (08:11→19:56)
[2019-03-21] MEDS: ISOSORBIDE MONONITRATE ER 30 MG TAB.ER.24H PO SCH (08:11)
[2019-03-21] MEDS: DOCUSATE SODIUM 100 MG CAPSULE PO SCH (08:11)
[2019-03-21] MEDS: PANTOPRAZOLE 40 MG TABLET. PO SCH (08:12)
[2019-03-21] MEDS: FUROSEMIDE 20 MG TABLET PO SCH (08:12)
[2019-03-21] MEDS: DULoxetine HCL 60 MG CAPSULE.DR PO SCH (08:12)
[2019-03-21] MEDS: FENOFIBRATE NANOCRYSTALLIZED 48 MG TABLET PO SCH (08:12)
[2019-03-21] MEDS: LOSARTAN 50 MG TABLET. PO SCH (08:12)
[2019-03-21] MEDS: glipiZIDE ER 2.5 MG TAB.ER.24 PO SCH (08:12)
[2019-03-21] MEDS: GABAPENTIN 400 MG CAPSULE. PO SCH ×2 (08:14→19:56)
[2019-03-21] MEDS: clonazePAM 0.5 MG TABLET PO SCH ×3 (08:14→19:58)
[2019-03-21 16:00] VITALS: BP 112/65
[2019-03-21] MEDS: ATORVASTATIN CALCIUM 20 MG TABLET PO SCH (19:56)
[2019-03-21] MEDS: EZETIMIBE 10 MG TABLET PO SCH (19:56)
[2019-03-21] MEDS: ASPIRIN ENTERIC COATED 81 MG TABLET.DR. PO SCH (19:56)
[2019-03-21] MEDS: traZODone 50 MG TABLET. PO SCH (19:56)
[2019-03-21] MEDS: MIRTAZAPINE 30 MG TABLET PO SCH (19:58)
--- NOTE | 2019-03-22 00:22 | PN ---
DATE: 03/21/2019 SUBJECTIVE: The patient was seen today, met with the staff, chart reviewed. The patient's behavior remains the same, highly anxious, nervous, and emotionally labile. The patient is still depressed. OBSERVATION: VITAL SIGNS: Temperature 98.7, blood pressure 131/72, pulse 63, respirations 22, O2 sat 93%. Slept about 6-1/2 hours last night. The patient is not having any major physical complaints. The patient is not having any side effects to the medication except for sleeping excessively at times. MEDICATIONS: The patient's current medication includes Abilify 5 mg daily, Cymbalta 60 mg daily, BuSpar 20 mg t.i.d., gabapentin 450 mg b.i.d., mirtazapine 45 mg at night, and trazodone 50 mg at night. The patient is also on Klonopin 0.25 mg t.i.d. p.o. The patient continues to have problems with high level of anxiety, mood swings, and irritability and also in a panic state. ASSESSMENT: 1. Major depressive disorder, moderate, with psychotic features. 2. Anxiety disorder, unspecified. 3. Mild cognitive impairment. PLAN: Continue with the treatment. The patient's mirtazapine to be decreased to 30 mg at night. LENGTH OF STAY: 3-5 days. ANTONIO LEIJA MD DR: Cristine JOB#: [id number] / [id number]
[2019-03-22] MEDS: LEVOTHYROXINE 112 MCG TABLET PO SCH (05:33)
[2019-03-22 06:21] VITALS: BP 101/60
[2019-03-22] MEDS: ARIPiprazole 5 MG TABLET PO SCH (07:46)
[2019-03-22] MEDS: FENOFIBRATE NANOCRYSTALLIZED 48 MG TABLET PO SCH (07:46)
[2019-03-22] MEDS: ISOSORBIDE MONONITRATE ER 30 MG TAB.ER.24H PO SCH (07:47)
[2019-03-22] MEDS: CARVEDILOL 6.25 MG TABLET PO SCH ×2 (07:47→17:39)
[2019-03-22] MEDS: DULoxetine HCL 60 MG CAPSULE.DR PO SCH (07:47)
[2019-03-22] MEDS: CLOPIDOGREL BISULFATE 75 MG TABLET PO SCH (07:47)
[2019-03-22] MEDS: busPIRone 10 MG TABLET. PO SCH ×3 (07:48→21:00)
[2019-03-22] MEDS: LOSARTAN 50 MG TABLET. PO SCH (07:48)
[2019-03-22] MEDS: PANTOPRAZOLE 40 MG TABLET. PO SCH (07:48)
[2019-03-22] MEDS: GABAPENTIN 400 MG CAPSULE. PO SCH ×2 (07:48→21:00)
[2019-03-22] MEDS: FUROSEMIDE 20 MG TABLET PO SCH (07:48)
[2019-03-22] MEDS: DOCUSATE SODIUM 100 MG CAPSULE PO SCH (07:48)
[2019-03-22] MEDS: glipiZIDE ER 2.5 MG TAB.ER.24 PO SCH (07:49)
[2019-03-22] MEDS: clonazePAM 0.5 MG TABLET PO SCH ×3 (07:51→21:07)
[2019-03-22 16:02] VITALS: BP 106/67
[2019-03-22] MEDS: traZODone 50 MG TABLET. PO SCH (21:00)
[2019-03-22] MEDS: EZETIMIBE 10 MG TABLET PO SCH (21:00)
[2019-03-22] MEDS: ASPIRIN ENTERIC COATED 81 MG TABLET.DR. PO SCH (21:00)
[2019-03-22] MEDS: ATORVASTATIN CALCIUM 20 MG TABLET PO SCH (21:00)
[2019-03-22] MEDS: MIRTAZAPINE 30 MG TABLET PO SCH (21:00)
--- NOTE | 2019-03-22 23:12 | PN ---
DATE: 03/22/2019 SUBJECTIVE: The patient was seen today, met with the staff, chart reviewed. The patient continues to show improvement interacting with other residents, still has episodes. She feels anxious, but much improved. OBSERVATION: VITAL SIGNS: Temperature 97.9, blood pressure 101/68, pulse 66, respirations 18, O2 sat 94%. Slept about 6-1/2 hours last night. The patient's appetite normal. ASSESSMENT: 1. Major depressive disorder, moderate with psychotic features. 2. Anxiety disorder, unspecified. 3. Mild cognitive impairment. The patient's mirtazapine was decreased to 30 mg yesterday. PLAN: To continue with the treatment. LENGTH OF STAY: 4 days. ANTONIO LEIJA MD DR: CRISTINA/sadaf JOB#: [id number] / [id number]
[2019-03-23] MEDS: LEVOTHYROXINE 112 MCG TABLET PO SCH (05:57)
[2019-03-23 06:23] VITALS: BP 94/60
[2019-03-23] MEDS: CARVEDILOL 6.25 MG TABLET PO SCH ×2 (08:00→16:53)
[2019-03-23] MEDS: PANTOPRAZOLE 40 MG TABLET. PO SCH (08:07)
[2019-03-23] MEDS: busPIRone 10 MG TABLET. PO SCH ×3 (08:09→19:21)
[2019-03-23] MEDS: glipiZIDE ER 2.5 MG TAB.ER.24 PO SCH (08:09)
[2019-03-23] MEDS: DULoxetine HCL 60 MG CAPSULE.DR PO SCH (08:09)
[2019-03-23] MEDS: DOCUSATE SODIUM 100 MG CAPSULE PO SCH (08:09)
[2019-03-23] MEDS: ARIPiprazole 5 MG TABLET PO SCH (08:09)
[2019-03-23] MEDS: CLOPIDOGREL BISULFATE 75 MG TABLET PO SCH (08:09)
[2019-03-23] MEDS: FENOFIBRATE NANOCRYSTALLIZED 48 MG TABLET PO SCH (08:10)
[2019-03-23] MEDS: GABAPENTIN 400 MG CAPSULE. PO SCH ×2 (08:14→19:23)
[2019-03-23 08:21] LABS: BASO % 1 % (0-3); EOS # 0.2 x10^3/uL (0.0-0.7); EOS % 4 % (0-3); HEMATOCRIT 42.1 % (36.0-47.0); HEMOGLOBIN 13.6 g/dL (12.0-15.5); LYMPH # 0.6 x10^3/uL (1.0-4.8); LYMPH % 13 % (24-48); MEAN CORPUSCULAR HEMOGLOBIN 29 pg (25-35); MEAN CORPUSCULAR HGB CONC 32 g/dL (31-37); MEAN CORPUSCULAR VOLUME 89 fL (79-100); MONO # 0.4 x10^3/uL (0.0-1.1); MONO % 9 % (0-9); NEUT # 3.5 x10^3uL (1.8-7.7); NEUT % 74 % (31-73); PLATELET COUNT 171 x10^3/uL (140-400); RED BLOOD COUNT 4.73 x10^6/uL (3.50-5.40); WHITE BLOOD COUNT 4.7 x10^3/uL (4.0-11.0)
[2019-03-23 08:25] VITALS: BP 110/66
[2019-03-23] MEDS: FUROSEMIDE 20 MG TABLET PO SCH (08:26)
[2019-03-23] MEDS: clonazePAM 0.5 MG TABLET PO SCH ×3 (08:27→19:23)
[2019-03-23 08:32] LABS: ALBUMIN 3.2 g/dL (3.4-5.0); CALCIUM 9.7 mg/dL (8.5-10.1); CREATININE 1.6 mg/dL (0.6-1.0); GFR 31.4; POTASSIUM 3.6 mmol/L (3.5-5.1); TOTAL BILIRUBIN 0.3 mg/dL (0.2-1.0); TOTAL PROTEIN 6.4 g/dL (6.4-8.2)
[2019-03-23] MEDS: ISOSORBIDE MONONITRATE ER 30 MG TAB.ER.24H PO SCH (09:00)
[2019-03-23] MEDS: LOSARTAN 50 MG TABLET. PO SCH (09:00)
[2019-03-23] MEDS ORDERED: NYSTATIN TOPICAL POWDER 15GM BOTTLE. TP PRN (10:45)
[2019-03-23 15:49] VITALS: BP 143/84
[2019-03-23] MEDS: traZODone 50 MG TABLET. PO SCH (19:20)
[2019-03-23] MEDS: ASPIRIN ENTERIC COATED 81 MG TABLET.DR. PO SCH (19:21)
[2019-03-23] MEDS: EZETIMIBE 10 MG TABLET PO SCH (19:21)
[2019-03-23] MEDS: ATORVASTATIN CALCIUM 20 MG TABLET PO SCH (19:21)
[2019-03-23] MEDS: MIRTAZAPINE 30 MG TABLET PO SCH (19:21)
--- NOTE | 2019-03-23 22:04 | PDOC ---
Exam Note: Roni Note: Please also refer to the separate dictated note~for this date of service dictated separately.~Patient seen individually. Discussed the patient with Nursing staff reviewed the chart.~Reviewed interim history and current functioning. Reviewed vital signs,~Labs/ Radiology~and current medications noted below. Continue current treatment with the changes noted in the dictated addendum note Assessment: Vital Signs/I&O: Vital Signs Date Time Temp Pulse Resp B/P (MAP) Pulse Ox O2 Delivery O2 Flow Rate FiO2 03/23/19 16:53 66 143/84 03/23/19 15:49 98.2 18 95 Nasal Cannula 2.0 I & O 03/22/19 03/22/19 03/23/19 15:00 23:00 07:00 Intake Total 720 ml 360 ml 120 ml Balance 720 ml 360 ml 120 ml Labs: Laboratory Tests Test 03/23/19 07:25 03/23/19 07:52 Glucose (Fingerstick) 101 mg/dL (70-99) H White Blood Count 4.7 x10^3/uL (4.0-11.0) Red Blood Count 4.73 x10^6/uL (3.50-5.40) Hemoglobin 13.6 g/dL (12.0-15.5) Hematocrit 42.1 % (36.0-47.0) Mean Corpuscular Volume 89 fL (79-100) Mean Corpuscular Hemoglobin 29 pg (25-35) Mean Corpuscular Hemoglobin Concent 32 g/dL (31-37) Red Cell Distribution Width 14.0 % (11.5-14.5) Platelet Count 171 x10^3/uL (140-400) Neutrophils (%) (Auto) 74 % (31-73) H Lymphocytes (%) (Auto) 13 % (24-48) L Monocytes (%) (Auto) 9 % (0-9) Eosinophils (%) (Auto) 4 % (0-3) H Basophils (%) (Auto) 1 % (0-3) Neutrophils # (Auto) 3.5 x10^3uL (1.8-7.7) Lymphocytes # (Auto) 0.6 x10^3/uL (1.0-4.8) L Monocytes # (Auto) 0.4 x10^3/uL (0.0-1.1) Eosinophils # (Auto) 0.2 x10^3/uL (0.0-0.7) Basophils # (Auto) 0.0 x10^3/uL (0.0-0.2) Sodium Level 148 mmol/L (136-145) H Potassium Level 3.6 mmol/L (3.5-5.1) Chloride Level 108 mmol/L (98-107) H Carbon Dioxide Level 32 mmol/L (21-32) Anion Gap 8 (6-14) Blood Urea Nitrogen 46 mg/dL (7-20) H Creatinine 1.6 mg/dL (0.6-1.0) H Estimated GFR (Cockcroft-Gault) 31.4 BUN/Creatinine Ratio 29 (6-20) H Glucose Level 113 mg/dL (70-99) H Calcium Level 9.7 mg/dL (8.5-10.1) Total Bilirubin 0.3 mg/dL (0.2-1.0) Aspartate Amino Transferase (AST) 13 U/L (15-37) L Alanine Aminotransferase (ALT) 17 U/L (14-59) Alkaline Phosphatase 82 U/L (46-116) Total Protein 6.4 g/dL (6.4-8.2) Albumin 3.2 g/dL (3.4-5.0) L Albumin/Globulin Ratio 1.0 (1.0-1.7) Current Medications: I have reviewed the current psychotropics carefully including drug interactions. Risk benefit ratio favors no change other than as noted in my dictated progress note. Diagnosis: Problems: (1) Panic disorder with agoraphobia and severe panic attacks (2) Anxiety disorder (3) Impulse control disorder (4) Major depressive disorder, recurrent episode (5) Mild cognitive disorder ADRIANA BENSON MD Mar 23, 2019 22:04
[2019-03-24] MEDS: LEVOTHYROXINE 112 MCG TABLET PO SCH (05:20)
[2019-03-24 06:21] VITALS: BP 103/51
[2019-03-24 08:00] VITALS: BP 116/80
[2019-03-24] MEDS: CARVEDILOL 6.25 MG TABLET PO SCH ×2 (08:00→16:41)
[2019-03-24] MEDS: PANTOPRAZOLE 40 MG TABLET. PO SCH (08:02)
[2019-03-24] MEDS: DOCUSATE SODIUM 100 MG CAPSULE PO SCH (08:03)
[2019-03-24] MEDS: glipiZIDE ER 2.5 MG TAB.ER.24 PO SCH (08:03)
[2019-03-24] MEDS: busPIRone 10 MG TABLET. PO SCH ×3 (08:03→21:45)
[2019-03-24] MEDS: ARIPiprazole 5 MG TABLET PO SCH (08:03)
[2019-03-24] MEDS: ISOSORBIDE MONONITRATE ER 30 MG TAB.ER.24H PO SCH (08:04)
[2019-03-24] MEDS: DULoxetine HCL 60 MG CAPSULE.DR PO SCH (08:04)
[2019-03-24] MEDS: FUROSEMIDE 20 MG TABLET PO SCH (08:04)
[2019-03-24] MEDS: LOSARTAN 50 MG TABLET. PO SCH (08:04)
[2019-03-24] MEDS: FENOFIBRATE NANOCRYSTALLIZED 48 MG TABLET PO SCH (08:05)
[2019-03-24] MEDS: CLOPIDOGREL BISULFATE 75 MG TABLET PO SCH (08:05)
[2019-03-24] MEDS: clonazePAM 0.5 MG TABLET PO SCH ×3 (08:08→21:46)
[2019-03-24] MEDS: GABAPENTIN 400 MG CAPSULE. PO SCH ×2 (08:09→21:00)
[2019-03-24 16:52] VITALS: BP 104/70
[2019-03-24] MEDS: MIRTAZAPINE 30 MG TABLET PO SCH (21:45)
[2019-03-24] MEDS: ATORVASTATIN CALCIUM 20 MG TABLET PO SCH (21:45)
[2019-03-24] MEDS: traZODone 50 MG TABLET. PO SCH (21:45)
[2019-03-24] MEDS: ASPIRIN ENTERIC COATED 81 MG TABLET.DR. PO SCH (21:45)
[2019-03-24] MEDS: EZETIMIBE 10 MG TABLET PO SCH (21:45)
[2019-03-24] MEDS ORDERED: GABAPENTIN 100 MG CAPSULE. PO ONE (22:30)
--- NOTE | 2019-03-24 22:45 | PDOC ---
Exam Note: Roni Note: Please also refer to the separate dictated note~for this date of service dictated separately.~Patient seen individually. Discussed the patient with Nursing staff reviewed the chart.~Reviewed interim history and current functioning. Reviewed vital signs,~Labs/ Radiology~and current medications noted below. Continue current treatment with the changes noted in the dictated addendum note Assessment: Vital Signs/I&O: Vital Signs Date Time Temp Pulse Resp B/P (MAP) Pulse Ox O2 Delivery O2 Flow Rate FiO2 03/24/19 16:52 98.2 63 16 104/70 (81) 94 03/24/19 06:21 Nasal Cannula 2.0 I & O 03/23/19 03/23/19 03/24/19 14:59 22:59 06:59 Intake Total 480 ml 360 ml Balance 480 ml 360 ml Labs: Laboratory Tests Test 03/24/19 07:35 Glucose (Fingerstick) 134 mg/dL (70-99) H Current Medications: Meds: Current Medications Medications (Trade) Dose Ordered Sig/Bob Route PRN Reason Start Time Stop Time Status Last Admin Dose Admin Gabapentin (Neurontin) 400 mg ONCE ONCE PO 03/24/19 22:30 03/24/19 22:31 DC 03/24/19 22:30 I have reviewed the current psychotropics carefully including drug interactions. Risk benefit ratio favors no change other than as noted in my dictated progress note. Diagnosis: Problems: (1) Panic disorder with agoraphobia and severe panic attacks (2) Anxiety disorder (3) Impulse control disorder (4) Major depressive disorder, recurrent episode (5) Mild cognitive disorder ADRIANA BENSON MD Mar 24, 2019 22:45
[2019-03-25 06:08] VITALS: BP 133/76
[2019-03-25] MEDS: LEVOTHYROXINE 112 MCG TABLET PO SCH (06:25)
[2019-03-25] MEDS: PANTOPRAZOLE 40 MG TABLET. PO SCH (07:58)
[2019-03-25] MEDS: CARVEDILOL 6.25 MG TABLET PO SCH ×2 (08:00→17:15)
[2019-03-25] MEDS: glipiZIDE ER 2.5 MG TAB.ER.24 PO SCH (08:00)
[2019-03-25] MEDS: ARIPiprazole 5 MG TABLET PO SCH (08:00)
[2019-03-25] MEDS: DOCUSATE SODIUM 100 MG CAPSULE PO SCH (08:00)
[2019-03-25] MEDS: busPIRone 10 MG TABLET. PO SCH ×3 (08:00→20:49)
[2019-03-25] MEDS: LOSARTAN 50 MG TABLET. PO SCH (08:01)
[2019-03-25] MEDS: DULoxetine HCL 60 MG CAPSULE.DR PO SCH (08:01)
[2019-03-25] MEDS: ISOSORBIDE MONONITRATE ER 30 MG TAB.ER.24H PO SCH (08:02)
[2019-03-25] MEDS: clonazePAM 0.5 MG TABLET PO SCH ×3 (08:05→20:51)
[2019-03-25] MEDS: FENOFIBRATE NANOCRYSTALLIZED 48 MG TABLET PO SCH (08:05)
[2019-03-25] MEDS: FUROSEMIDE 20 MG TABLET PO SCH (08:05)
[2019-03-25] MEDS: CLOPIDOGREL BISULFATE 75 MG TABLET PO SCH (08:05)
[2019-03-25] MEDS: GABAPENTIN 400 MG CAPSULE. PO SCH ×2 (08:12→20:48)
[2019-03-25 16:38] VITALS: BP 119/77
[2019-03-25] MEDS: traZODone 50 MG TABLET. PO SCH (20:48)
[2019-03-25] MEDS: ASPIRIN ENTERIC COATED 81 MG TABLET.DR. PO SCH (20:48)
[2019-03-25] MEDS: ATORVASTATIN CALCIUM 20 MG TABLET PO SCH (20:48)
[2019-03-25] MEDS: MIRTAZAPINE 30 MG TABLET PO SCH (20:48)
[2019-03-25] MEDS: EZETIMIBE 10 MG TABLET PO SCH (20:49)
--- NOTE | 2019-03-25 22:45 | PDOC ---
Exam Note: Roni Note: Please also refer to the separate dictated note~for this date of service dictated separately.~Patient seen individually. Discussed the patient with Nursing staff reviewed the chart.~Reviewed interim history and current functioning. Reviewed vital signs,~Labs/ Radiology~and current medications noted below. Continue current treatment with the changes noted in the dictated addendum note Assessment: Vital Signs/I&O: Vital Signs Date Time Temp Pulse Resp B/P (MAP) Pulse Ox O2 Delivery O2 Flow Rate FiO2 03/25/19 17:15 66 119/77 03/25/19 16:38 97.8 18 92 2.0 03/24/19 06:21 Nasal Cannula I & O 03/24/19 03/24/19 03/25/19 15:00 23:00 07:00 Intake Total 960 ml 480 ml Balance 960 ml 480 ml Labs: Laboratory Tests Test 03/25/19 07:14 Glucose (Fingerstick) 97 mg/dL (70-99) Current Medications: I have reviewed the current psychotropics carefully including drug interactions. Risk benefit ratio favors no change other than as noted in my dictated progress note. Diagnosis: Problems: (1) Panic disorder with agoraphobia and severe panic attacks (2) Anxiety disorder (3) Impulse control disorder (4) Major depressive disorder, recurrent episode (5) Mild cognitive disorder ADRIANA BENSON MD Mar 25, 2019 22:45
--- NOTE | 2019-03-26 00:18 | PN ---
DATE: 03/23/2019 PSYCHIATRIC PROGRESS NOTE This late entry 03/23 covers elements not covered in my initial note. SUBJECTIVE: I met with the patient in the evening. Overall, the patient did well the previous night and during the day. Overall, mood is better. REVIEW OF SYSTEMS: Ambulation impaired with walker/wheelchair. No CV, , pulmonary, eye, ENT system symptoms on review. Reliability fair. MENTAL STATUS EXAM: Oriented to herself and situation. Speech is coherent, has some latency. Abstraction fair, computation impaired, language function intact, attention span short. Mood and affect improved. LABORATORY DATA: Reviewed. IMPRESSION: Major depressive disorder, recurrent, severe, in partial remission; history of suicidal ideation, in remission; rest unchanged. PLAN: Continue current psychotropics; BuSpar, Klonopin, Cymbalta, trazodone, Abilify along with Remeron. Adjust further as clinically indicated. ADRIANA BENSON MD DR: FILI/sadaf JOB#: [id number] / [id number]
--- NOTE | 2019-03-26 02:36 | PN ---
DATE: 03/24/2019 PSYCHIATRIC PROGRESS NOTE This is a late entry 03/24/2019, covers the elements not covered in my initial note. SUBJECTIVE: I met with the patient in the evening. The patient slept 6 hours previous night. She has been doing better, less withdrawn. Subjectively states her mood is better. REVIEW OF SYSTEMS: Ambulation impaired, in wheelchair. No CV, , pulmonary, eye, ENT system symptoms on review. MENTAL STATUS EXAM: Oriented to herself and situation. Speech is coherent, has some latency. Abstraction fair, computation impaired, language function intact, attention span short. Mood and affect less depressed. LABORATORY DATA: Reviewed. IMPRESSION: Unchanged from initial note. PLAN: No change from initial note. MAN Flavio BENSON MD DR: FILI/nts JOB#: [id number] / [id number]
[2019-03-26 06:13] VITALS: BP 123/80
[2019-03-26] MEDS: LEVOTHYROXINE 112 MCG TABLET PO SCH (06:36)
[2019-03-26] MEDS: GABAPENTIN 400 MG CAPSULE. PO SCH ×2 (08:16→19:56)
[2019-03-26] MEDS: ISOSORBIDE MONONITRATE ER 30 MG TAB.ER.24H PO SCH (08:17)
[2019-03-26] MEDS: FUROSEMIDE 20 MG TABLET PO SCH (08:17)
[2019-03-26] MEDS: DULoxetine HCL 60 MG CAPSULE.DR PO SCH (08:17)
[2019-03-26] MEDS: LOSARTAN 50 MG TABLET. PO SCH (08:17)
[2019-03-26] MEDS: DOCUSATE SODIUM 100 MG CAPSULE PO SCH (08:17)
[2019-03-26] MEDS: ARIPiprazole 5 MG TABLET PO SCH (08:17)
[2019-03-26] MEDS: busPIRone 10 MG TABLET. PO SCH ×3 (08:18→19:48)
[2019-03-26] MEDS: PANTOPRAZOLE 40 MG TABLET. PO SCH (08:18)
[2019-03-26] MEDS: CLOPIDOGREL BISULFATE 75 MG TABLET PO SCH (08:19)
[2019-03-26] MEDS: clonazePAM 0.5 MG TABLET PO SCH ×3 (08:19→19:56)
[2019-03-26] MEDS: CARVEDILOL 3.125 MG TABLET PO SCH ×2 (08:25→17:34)
[2019-03-26] MEDS: FENOFIBRATE NANOCRYSTALLIZED 48 MG TABLET PO SCH (08:40)
[2019-03-26] MEDS: glipiZIDE ER 2.5 MG TAB.ER.24 PO SCH (08:40)
[2019-03-26 16:15] VITALS: BP 120/78
[2019-03-26] MEDS: MIRTAZAPINE 30 MG TABLET PO SCH (19:48)
[2019-03-26] MEDS: traZODone 50 MG TABLET. PO SCH (19:48)
[2019-03-26] MEDS: ASPIRIN ENTERIC COATED 81 MG TABLET.DR. PO SCH (19:48)
[2019-03-26] MEDS: EZETIMIBE 10 MG TABLET PO SCH (19:48)
[2019-03-26] MEDS: ATORVASTATIN CALCIUM 20 MG TABLET PO SCH (19:49)
--- NOTE | 2019-03-26 22:41 | PDOC ---
Exam Note: Roni Note: Please also refer to the separate dictated note~for this date of service dictated separately.~Patient seen individually. Discussed the patient with Nursing staff reviewed the chart.~Reviewed interim history and current functioning. Reviewed vital signs,~Labs/ Radiology~and current medications noted below. Continue current treatment with the changes noted in the dictated addendum note Assessment: Vital Signs/I&O: Vital Signs Date Time Temp Pulse Resp B/P (MAP) Pulse Ox O2 Delivery O2 Flow Rate FiO2 03/26/19 17:34 63 120/78 03/26/19 16:15 97.8 17 94 03/25/19 16:38 2.0 03/24/19 06:21 Nasal Cannula I & O 03/25/19 03/25/19 03/26/19 14:59 22:59 06:59 Intake Total 600 ml 480 ml 240 ml Balance 600 ml 480 ml 240 ml Labs: Laboratory Tests Test 03/26/19 07:33 Glucose (Fingerstick) 110 mg/dL (70-99) H Current Medications: Meds: Current Medications Medications (Trade) Dose Ordered Sig/Bob Route PRN Reason Start Time Stop Time Status Last Admin Dose Admin Carvedilol (Coreg) 3.125 mg BIDWMEALS PO 03/26/19 08:00 03/26/19 17:34 I have reviewed the current psychotropics carefully including drug interactions. Risk benefit ratio favors no change other than as noted in my dictated progress note. Diagnosis: Problems: (1) Panic disorder with agoraphobia and severe panic attacks (2) Anxiety disorder (3) Impulse control disorder (4) Major depressive disorder, recurrent episode (5) Mild cognitive disorder ADRIANA BENSON MD Mar 26, 2019 22:41
--- NOTE | 2019-03-27 00:25 | PN ---
DATE: 03/25/2019 PSYCHIATRIC PROGRESS NOTE This late entry 03/25/2019 covers elements not covered in my initial note. SUBJECTIVE: I met with the patient evening of 03/25/2019. The patient slept 6-3/4 hours previous evening. Overall, she states her mood is better. She has done well at night and during the day has been more interactive, less depressed and anxious. REVIEW OF SYSTEMS: Ambulation impaired. No CV, , pulmonary, eye, ENT system symptoms on review. MENTAL STATUS EXAM: Reasonably oriented. Speech is coherent, abstraction fair, computation impaired, language function intact, attention span short. Mood and affect is improved. No suicidal ideation. LABORATORY DATA: Reviewed. IMPRESSION: Unchanged from initial note. PLAN: No change from initial note. ADRIANA BENSON MD DR: FILI/sadaf JOB#: [id number] / [id number]
[2019-03-27] MEDS: LEVOTHYROXINE 112 MCG TABLET PO SCH (05:30)
[2019-03-27 06:17] VITALS: BP 91/54
[2019-03-27] MEDS: FENOFIBRATE NANOCRYSTALLIZED 48 MG TABLET PO SCH (07:26)
[2019-03-27] MEDS: DOCUSATE SODIUM 100 MG CAPSULE PO SCH (07:26)
[2019-03-27] MEDS: PANTOPRAZOLE 40 MG TABLET. PO SCH (07:26)
[2019-03-27] MEDS: DULoxetine HCL 60 MG CAPSULE.DR PO SCH (07:26)
[2019-03-27] MEDS: CLOPIDOGREL BISULFATE 75 MG TABLET PO SCH (07:26)
[2019-03-27] MEDS: busPIRone 10 MG TABLET. PO SCH ×3 (07:27→20:35)
[2019-03-27] MEDS: glipiZIDE ER 2.5 MG TAB.ER.24 PO SCH (07:27)
[2019-03-27] MEDS: ARIPiprazole 5 MG TABLET PO SCH (07:27)
[2019-03-27] MEDS: GABAPENTIN 400 MG CAPSULE. PO SCH ×2 (07:44→20:41)
[2019-03-27] MEDS: clonazePAM 0.5 MG TABLET PO SCH ×3 (10:19→20:38)
[2019-03-27 10:24] VITALS: BP 129/80
[2019-03-27] MEDS: CARVEDILOL 3.125 MG TABLET PO SCH ×2 (10:25→16:19)
[2019-03-27] MEDS: LOSARTAN 50 MG TABLET. PO SCH (10:25)
[2019-03-27] MEDS: FUROSEMIDE 20 MG TABLET PO SCH (10:25)
[2019-03-27] MEDS: ISOSORBIDE MONONITRATE ER 30 MG TAB.ER.24H PO SCH (10:26)
[2019-03-27 15:42] VITALS: BP 98/64
[2019-03-27] MEDS: ASPIRIN ENTERIC COATED 81 MG TABLET.DR. PO SCH (20:34)
[2019-03-27] MEDS: ATORVASTATIN CALCIUM 20 MG TABLET PO SCH (20:34)
[2019-03-27] MEDS: MIRTAZAPINE 30 MG TABLET PO SCH (20:35)
[2019-03-27] MEDS: EZETIMIBE 10 MG TABLET PO SCH (20:35)
[2019-03-27] MEDS: traZODone 50 MG TABLET. PO SCH (20:35)
--- NOTE | 2019-03-27 23:04 | PDOC ---
Exam Note: Roni Note: Please also refer to the separate dictated note~for this date of service dictated separately.~Patient seen individually. Discussed the patient with Nursing staff reviewed the chart.~Reviewed interim history and current functioning. Reviewed vital signs,~Labs/ Radiology~and current medications noted below. Continue current treatment with the changes noted in the dictated addendum note Assessment: Vital Signs/I&O: Vital Signs Date Time Temp Pulse Resp B/P (MAP) Pulse Ox O2 Delivery O2 Flow Rate FiO2 03/27/19 16:19 62 98/64 03/27/19 15:42 97.8 18 92 03/27/19 06:17 Nasal Cannula 2.0 I & O 03/26/19 03/26/19 03/27/19 15:00 23:00 07:00 Intake Total 720 ml 480 ml Balance 720 ml 480 ml Labs: Laboratory Tests Test 03/27/19 07:24 Glucose (Fingerstick) 112 mg/dL (70-99) H Current Medications: I have reviewed the current psychotropics carefully including drug interactions. Risk benefit ratio favors no change other than as noted in my dictated progress note. Diagnosis: Problems: (1) Panic disorder with agoraphobia and severe panic attacks (2) Anxiety disorder (3) Impulse control disorder (4) Major depressive disorder, recurrent episode (5) Mild cognitive disorder ADRIANA BENSON MD Mar 27, 2019 23:04
[2019-03-28] MEDS: LEVOTHYROXINE 112 MCG TABLET PO SCH (05:34)
[2019-03-28 05:58] VITALS: BP 103/57
[2019-03-28] MEDS: DOCUSATE SODIUM 100 MG CAPSULE PO SCH (08:27)
[2019-03-28] MEDS: CARVEDILOL 3.125 MG TABLET PO SCH ×2 (08:27→17:34)
[2019-03-28] MEDS: PANTOPRAZOLE 40 MG TABLET. PO SCH (08:28)
[2019-03-28] MEDS: busPIRone 10 MG TABLET. PO SCH ×3 (08:28→19:23)
[2019-03-28] MEDS: FUROSEMIDE 20 MG TABLET PO SCH (08:28)
[2019-03-28] MEDS: CLOPIDOGREL BISULFATE 75 MG TABLET PO SCH (08:28)
[2019-03-28] MEDS: DULoxetine HCL 60 MG CAPSULE.DR PO SCH (08:28)
[2019-03-28] MEDS: ARIPiprazole 5 MG TABLET PO SCH (08:28)
[2019-03-28] MEDS: GABAPENTIN 400 MG CAPSULE. PO SCH ×2 (08:32→19:23)
[2019-03-28] MEDS: clonazePAM 0.5 MG TABLET PO SCH ×3 (08:32→19:25)
[2019-03-28] MEDS: glipiZIDE ER 2.5 MG TAB.ER.24 PO SCH (08:33)
[2019-03-28] MEDS: FENOFIBRATE NANOCRYSTALLIZED 48 MG TABLET PO SCH (08:33)
[2019-03-28] MEDS: ISOSORBIDE DINITRATE 10 MG TABLET. PO SCH ×2 (08:33→19:27)
[2019-03-28] MEDS: LOSARTAN 25 MG TABLET. PO SCH (08:33)
[2019-03-28 16:01] VITALS: BP 109/71
[2019-03-28] MEDS: MIRTAZAPINE 30 MG TABLET PO SCH (19:22)
[2019-03-28] MEDS: EZETIMIBE 10 MG TABLET PO SCH (19:22)
[2019-03-28] MEDS: traZODone 50 MG TABLET. PO SCH (19:23)
[2019-03-28] MEDS: ATORVASTATIN CALCIUM 20 MG TABLET PO SCH (19:23)
[2019-03-28] MEDS: ASPIRIN ENTERIC COATED 81 MG TABLET.DR. PO SCH (19:23)
[2019-03-28 19:37] VITALS: BP 152/83
[2019-03-28] MEDS ORDERED: ACET325T9 PO (22:45)
--- NOTE | 2019-03-28 22:45 | PDOC ---
Exam Note: Roni Note: Please also refer to the separate dictated note~for this date of service dictated separately.~Patient seen individually. Discussed the patient with Nursing staff reviewed the chart.~Reviewed interim history and current functioning. Reviewed vital signs,~Labs/ Radiology~and current medications noted below. Continue current treatment with the changes noted in the dictated addendum note Assessment: Vital Signs/I&O: Vital Signs Date Time Temp Pulse Resp B/P (MAP) Pulse Ox O2 Delivery O2 Flow Rate FiO2 03/28/19 19:37 67 152/83 (106) 03/28/19 16:01 97.7 16 95 03/27/19 06:17 Nasal Cannula 2.0 I & O 0 03/27/19 03/27/19 03/28/19 15:00 23:00 07:00 Intake Total 960 ml 600 ml Balance 960 ml 600 ml Labs: Laboratory Tests Test 03/28/19 07:23 03/28/19 16:14 Glucose (Fingerstick) 91 mg/dL (70-99) 172 mg/dL (70-99) H Current Medications: Meds: Current Medications Medications (Trade) Dose Ordered Sig/Bob Route PRN Reason Start Time Stop Time Status Last Admin Dose Admin Isosorbide Dinitrate (Isordil) 10 mg BID PO 03/28/19 09:00 03/28/19 19:27 Losartan Potassium (Cozaar) 25 mg DAILY PO 03/28/19 09:00 03/28/19 08:33 I have reviewed the current psychotropics carefully including drug interactions. Risk benefit ratio favors no change other than as noted in my dictated progress note. Diagnosis: Problems: (1) Panic disorder with agoraphobia and severe panic attacks (2) Anxiety disorder (3) Impulse control disorder (4) Major depressive disorder, recurrent episode (5) Mild cognitive disorder ADRIANA BENSON MD Mar 28, 2019 22:45
[2019-03-28] MEDS ORDERED: ARIP5TAB13 PO (22:47)
[2019-03-28] MEDS ORDERED: LOSA25TA11 PO (22:48)
[2019-03-28] MEDS ORDERED: CARV3.12 PO (22:48)
[2019-03-28] MEDS ORDERED: MAGN2400 PO (22:49)
[2019-03-28] MEDS ORDERED: MAG355OR17 PO (22:49)
[2019-03-28] MEDS ORDERED: METH29OI TP (22:50)
[2019-03-28] MEDS ORDERED: NYST15PO9 TP (22:51)
[2019-03-28] MEDS ORDERED: MIRT30TA3 PO (22:51)
[2019-03-28] MEDS ORDERED: ISOS10TA2 PO (22:53)
[2019-03-29] MEDS: LEVOTHYROXINE 112 MCG TABLET PO SCH (05:44)
[2019-03-29 05:56] VITALS: BP 107/67
[2019-03-29] MEDS: PANTOPRAZOLE 40 MG TABLET. PO SCH (07:40)
[2019-03-29] MEDS: CARVEDILOL 3.125 MG TABLET PO SCH (07:42)
[2019-03-29] MEDS: glipiZIDE ER 2.5 MG TAB.ER.24 PO SCH (07:42)
[2019-03-29] MEDS: busPIRone 10 MG TABLET. PO SCH (07:43)
[2019-03-29] MEDS: ARIPiprazole 5 MG TABLET PO SCH (07:43)
[2019-03-29] MEDS: DOCUSATE SODIUM 100 MG CAPSULE PO SCH (07:44)
[2019-03-29] MEDS: DULoxetine HCL 60 MG CAPSULE.DR PO SCH (07:45)
[2019-03-29] MEDS: LOSARTAN 25 MG TABLET. PO SCH (07:45)
[2019-03-29 07:46] VITALS: BP 107/67
[2019-03-29] MEDS: FUROSEMIDE 20 MG TABLET PO SCH (07:46)
[2019-03-29] MEDS: ISOSORBIDE DINITRATE 10 MG TABLET. PO SCH (07:46)
[2019-03-29] MEDS: CLOPIDOGREL BISULFATE 75 MG TABLET PO SCH (07:47)
[2019-03-29] MEDS: FENOFIBRATE NANOCRYSTALLIZED 48 MG TABLET PO SCH (07:48)
[2019-03-29] MEDS: clonazePAM 0.5 MG TABLET PO SCH (07:52)
[2019-03-29] MEDS: GABAPENTIN 400 MG CAPSULE. PO SCH (07:52)
--- NOTE | 2019-03-29 16:33 | PN ---
DATE: 03/27/2019 PSYCHIATRIC PROGRESS NOTE This late entry, 03/27/2019, covers elements not covered in my initial note. SUBJECTIVE: I met with the patient in the evening of 03/27/2019. Overall, the patient slept well and she has been doing better on the unit. Subjectively, she states the depression is better as is the anxiety. REVIEW OF SYSTEMS: Ambulation impaired with walker/wheelchair. No CV, , pulmonary, eye, ENT system symptoms on review. MENTAL STATUS EXAM: Oriented reasonably. Speech is coherent, abstraction fair, computation impaired, language function intact, attention span fair. Mood and affect is improved, much more verbal, forthcoming less anxious. LABORATORY DATA: Reviewed. IMPRESSION: Unchanged from initial note. PLAN: No change from initial note. MAN Flavio BENSON MD DR: FILI/sadaf JOB#: [id number] / [id number]
--- NOTE | 2019-03-29 18:05 | PDOC ---
Exam Note: Roni Note: Please also refer to the separate dictated note~for this date of service dictated separately.~Patient seen individually. Discussed the patient with Nursing staff reviewed the chart.~Reviewed interim history and current functioning. Reviewed vital signs,~Labs/ Radiology~and current medications noted below. Continue current treatment with the changes noted in the dictated addendum note Assessment: Vital Signs/I&O: Vital Signs Date Time Temp Pulse Resp B/P (MAP) Pulse Ox O2 Delivery O2 Flow Rate FiO2 03/29/19 07:46 71 107/67 03/29/19 05:56 98.2 20 94 Nasal Cannula 2.0 I & O 03/28/19 03/28/19 03/29/19 15:00 23:00 07:00 Intake Total 960 ml 480 ml 420 ml Balance 960 ml 480 ml 420 ml Labs: Laboratory Tests Test 03/29/19 07:15 Glucose (Fingerstick) 108 mg/dL (70-99) H Current Medications: I have reviewed the current psychotropics carefully including drug interactions. Risk benefit ratio favors no change other than as noted in my dictated progress note. Diagnosis: Problems: (1) Major depressive disorder, recurrent episode (2) Impulse control disorder (3) Anxiety disorder (4) Panic disorder with agoraphobia and severe panic attacks (5) Mild cognitive disorder ADRIANA BENSON MD Mar 29, 2019 18:05
--- NOTE | 2019-03-29 19:43 | PN ---
DATE: 03/28/2019 PSYCHIATRIC PROGRESS NOTE. This late entry of 03/28/2019 covers the elements not covered in my initial note. SUBJECTIVE: I met with the patient evening of 03/28/2019. The patient slept 6-1/2 hours previous night. She has been pleasant, interactive, fairly cooperative, states her mood is better. Anxiety better. REVIEW OF SYSTEMS: Ambulation impaired, in wheelchair. No CV, , pulmonary, eye, ENT system symptoms on review. MENTAL STATUS EXAM: Reasonably oriented. Speech is coherent, abstraction fair, computation impaired, language function intact, attention span short. Mood and affect is improved. No suicidal ideation. LABORATORY DATA: Reviewed. IMPRESSION: Unchanged from initial note. PLAN: No change from initial note. MAN Flavio BENSON MD DR: FILI/sadaf JOB#: [id number] / [id number]
--- NOTE | 2019-03-31 18:26 | DS ---
DATE OF DISCHARGE: 03/29/2019 DISCHARGE SUMMARY/PSYCHIATRIC PROGRESS NOTE. This is a late entry, date of service 03/29/2019, covers the elements not covered in my initial note. REASON FOR ADMISSION: Please refer to the admission history for details. Briefly, the patient is a 73-year-old female referred to us from [facility] after she presented there from home on account of worsening symptoms of depression, anxiety with suicidal ideation and failure of 2 prior inpatient psychiatric hospitalizations at [facility]. The patient has failed outpatient psychiatric interventions. Behaviors deemed dangerous consequent to the suicidal ideation and admitted for inpatient psychiatric stabilization. SIGNIFICANT FINDINGS AND CLINICAL COURSE: Following admission, the patient was seen daily individually by myself from a psychiatric standpoint, medical followup with Dr. Jaime. She is quite depressed, anxious, hopeless, helpless and worthless at admission. Adjustments were made in her psychotropics and she seemed to respond to a combination of Cymbalta 60 mg a day. Abilify was added and adjusted to 5 mg daily, Remeron 30 mg at bedtime, trazodone 50 mg at bedtime, Klonopin 0.25 mg t.i.d., but starting in about 30 days, it could be gradually tapered. BuSpar was 20 mg 3 times a day, prior to discharge on 03/29/2019. REVIEW OF SYSTEMS: No CV, , pulmonary, eye, ENT system symptoms on review. MENTAL STATUS EXAM: Reasonably oriented. Speech is coherent, abstraction fair, computation impaired, language function intact, attention span short. Mood and affect improved. No suicidal ideation. FINAL DIAGNOSES: Major depressive disorder, recurrent, in partial remission; anxiety disorder, unspecified; mild cognitive impairment Rest unchanged from admission. DISCHARGE MEDICATIONS: Please refer to the [facility]. DISCHARGE INSTRUCTIONS: Outpatient psychiatric and medical followup as arranged prior to discharge. Time for discharge management greater than 30 minutes. ADRIANA BENSON MD DR: FILI/sadaf JOB#: [id number] / [id number]
== END 2019-03-29 10:30 | disposition home or self-care (01) | DRG 885 ==
LOC: GEROPSY 21:00
PROVIDERS: ADMIT Psychiatry & Neurology Psychiatry; ATTEND Psychiatry & Neurology Psychiatry
DX: F33.3 Major depressive disorder, recurrent, severe with psychotic symptoms (principal); E03.9 Hypothyroidism, unspecified; E11.9 Type 2 diabetes mellitus without complications; E78.5 Hyperlipidemia, unspecified; F63.9 Impulse disorder, unspecified; G31.84 Mild cognitive impairment of uncertain or unknown etiology; J44.9 Chronic obstructive pulmonary disease, unspecified; K21.9 Gastro-esophageal reflux disease without esophagitis; M15.9 Polyosteoarthritis, unspecified; R13.10 Dysphagia, unspecified; Z86.73 Personal history of transient ischemic attack (TIA), and cerebral infarction without residual deficits; Z87.440 Personal history of urinary (tract) infections; Z98.41 Cataract extraction status, right eye; Z98.42 Cataract extraction status, left eye; G89.29 Other chronic pain; F41.9 Anxiety disorder, unspecified; Z90.49 Acquired absence of other specified parts of digestive tract; F40.01 Agoraphobia with panic disorder
CPT/HCPCS: 36415; 70450; 80048; 80053; 80061; 82947; 83036; 83735; 84436; 84443; 84480; 85025; 86592; Q0162